=== PATIENT | female | born 1985 | race Caucasian/White ===

== ENCOUNTER 2019-09-21 13:54 | Emergency (ER) | payer OTHER ==
[2019-09-21 14:06] VITALS: BP 150/90; PULSE 99; TEMP 98.5; BMI 28.1
--- NOTE | 2019-09-21 14:06 | PDOC ---
Rapid Medical Evaluation Chief Complaint: Wound Time Seen by Provider: 09/21/19 14:03 Medical Evaluation: Allergies Allergy/AdvReac Type Severity Reaction Status Date / Time No Known Allergies Allergy Verified 09/21/19 14:03 09/21/19 14:04 I have performed a brief in-person evaluation of this patient. The patient presents with a chief complaint of:right thigh abscess x 7 days Pertinent physical exam findings: not observed I have ordered the following: UCG The patient will proceed to the ED for further evaluation. Discharge Disposition - Diagnosis Abscess - Referrals - Patient Instructions - Post Discharge Activity
--- NOTE | 2019-09-21 14:36 | PDOC ---
History of Present Illness - General Chief Complaint: Wound Stated Complaint: ABSCESS BOIL Time Seen by Provider: 09/21/19 14:03 History Source: Patient Exam Limitations: Clinical Condition - History of Present Illness Initial Comments: 09/21/19 14:37 Patient with no significant past medical history present with complaint of one- week history of abscess to right inner thigh which has not been improving with clindamycin antibiotics. Patient reported being seen in urgent care 5 days ago for abscess to right inner thigh and was prescribed clindamycin antibiotic in urgent care and advised to follow-up with general surgery which she followed up 3 days ago and was advised by general surgery to continue with prescribed antibiotics and hot compress but patient came in today because she feels symptoms not getting better. Denies fever, chills. Patient reported abscess has gotten bigger instead of smaller. Patient did not call back to general surgeon Timing/Duration: reports: week (1 week) Past History - Past Medical History Allergies/Adverse Reactions: Allergies Allergy/AdvReac Type Severity Reaction Status Date / Time No Known Allergies Allergy Verified 09/21/19 14:06 Home Medications: Ambulatory Orders Levothyroxine [Synthroid -] 50 mcg PO DAILY #30 tablet 12/05/15 Oxycodone HCl/Acetaminophen [Percocet 5/325 -] 1 tab PO Q6H #15 tablet 12/05/15 metFORMIN HCL [Glucophage -] 500 mg PO BID@0700,1630 #90 tablet 12/05/15 Cephalexin Monohydrate [Keflex -] 500 mg PO BID 7 Days #14 capsule 09/21/19 Mupirocin Ointment [Bactroban 2% Ointment -] 1 applic TP BID #1 tube 09/21/19 Sulfamethoxazole/Trimethoprim [Bactrim Ds -] 1 tab PO BID #14 tablet 09/21/19 Anemia: Yes Asthma: No Cancer: No Cardiac Disorders: No CVA: No COPD: No CHF: No Dementia: No Diabetes: Yes GI Disorders: No Disorders: No HTN: No Hypercholesterolemia: No Liver Disease: No Seizures: No Thyroid Disease: Yes (HYPO) - Psycho Social/Smoking Cessation Hx Smoking History: Never smoked Have you smoked in the past 12 months: No Number of Cigarettes Smoked Daily: 2 Information on smoking cessation initiated: No Hx Alcohol Use: No Drug/Substance Use Hx: No Substance Use Type: Marijuana Review of Systems - Review of Systems Able to Perform ROS?: Yes Is the patient limited Greek proficient: No Constitutional: No: Diaphoresis, Fever, Malaise, Weakness HEENTM: No: Symptoms Reported Respiratory: No: Symptoms reported Cardiac (ROS): No: Symptoms Reported ABD/GI: No: Symptoms Reported : No: Dysuria, Discharge, Frequency, Urgency Musculoskeletal: Yes: Symptoms Reported, See HPI, Muscle Pain (right inner thigh ) Integumentary: Yes: Symptoms Reported, See HPI, Lumps (ABSCESS TO RIGHT INNER HIGH) Neurological: No: Symptoms reported, Numbness, Tingling All Other Systems: Reviewed and Negative *Physical Exam - Vital Signs Last Vital Signs Temp Pulse Resp BP Pulse Ox 98.5 F 99 H 16 150/90 98 09/21/19 14:03 09/21/19 14:03 09/21/19 14:03 09/21/19 14:03 09/21/19 14:03 - Physical Exam Comments: 09/21/19 14:40 GENERAL: Well developed, well nourished. Awake and alert. No acute distress. PULMONARY: No evidence of respiratory distress. MUSCULOSKELETAL : mild tenderness to inner thigh around 3 cm area of hard induration to right inner thigh with mild surrounding erythema SKIN: Warm and dry. Normal capillary refill. 3 cm area of hard induration to right inner thigh with mild surrounding erythema. No open wound or drainage from site NEUROLOGICAL: Alert, awake, appropriate. No motor deficits in the lower extremities. Gait is normal without ataxia. PSYCHIATRIC: Cooperative. Good eye contact. Appropriate mood and affect. General Appearance: Yes: Nourished, Appropriately Dressed. No: Apparent Distress Medical Decision Making - Medical Decision Making 09/21/19 14:38 Patient with no significant past medical history present with complaint of one- week history of abscess to right inner thigh which has not been improving with clindamycin antibiotics. Patient reported being seen in urgent care 5 days ago for abscess to right inner thigh and was prescribed clindamycin antibiotic in urgent care and advised to follow-up with general surgery which she followed up 3 days ago and was advised by general surgery to continue with prescribed antibiotics and hot compress but patient came in today because she feels symptoms not getting better. Denies fever, chills. Patient reported abscess has gotten bigger instead of smaller. Patient did not call back to general surgeon Exam significant for 3 cm area of hard induration to inner right thigh with mild surrounding erythema. No pain wound or drainage from site. Given abscess not ready for I&D, and low sensitivity of Clinda to MRSA , will change antibiotics to Keflex and Bactrim antibiotics with topical Bactroban with advised to continue hot compress and follow-up with dermatology in 3 days for reassessment. Plan discussed with patient patient agrees with plan. Patient advised to take Motrin as needed for pain and stable for discharge Discharge - Discharge Information Problems reviewed: Yes Clinical Impression/Diagnosis: Abscess, Cellulitis and abscess of leg Condition: Stable Disposition: HOME - Admission No - Additional Discharge Information Prescriptions: Cephalexin Monohydrate [Keflex -] 500 mg PO BID 7 Days #14 capsule Mupirocin Ointment [Bactroban 2% Ointment -] 1 applic TP BID #1 tube Sulfamethoxazole/Trimethoprim [Bactrim Ds -] 1 tab PO BID #14 tablet - Follow up/Referral Referrals: Afsaneh Inman MD [Staff Physician] - - Patient Discharge Instructions Patient Printed Discharge Instructions: DI for Skin Abscess Additional Instructions: Stop previously prescribed antibiotics and take new prescribed antibiotics. Continue with hot compress to abscess area 2-3 times a day. Follow-up referred to dermatology in 2 to 3 days for reassessment - Post Discharge Activity
== END 2019-09-21 14:46 | disposition home or self-care (01) ==
LOC: JERFT 13:54
DX: L03.115 Cellulitis of right lower limb (principal); E11.9 Type 2 diabetes mellitus without complications; Z79.84 Long term (current) use of oral hypoglycemic drugs; E03.9 Hypothyroidism, unspecified
CPT/HCPCS: 84703; 99282-25

== ENCOUNTER 2021-01-16 05:47 | Emergency (ER) | payer SELFPAY ==
[2021-01-16 06:08] VITALS: TEMP 98.2; BMI 28.8
[2021-01-16] MEDS ORDERED: morphine CARPU-JECT 2 MG/1 ML DISP.SYRIN IVPUSH ONE (07:30)
[2021-01-16] MEDS ORDERED: CLINDAMYCIN IVPB 300 MG in DEXTROSE 5%-WATER - 48 ML IVPB ONE (07:33)
[2021-01-16] MEDS ORDERED: MORPHINE SULFATE 2 MG/ML VIAL ONE (08:25)
[2021-01-16] MEDS ORDERED: CLINDAMYCIN 600MG PREMIX IVPB 600 MG/50 ML BAG IVPB ONE (08:25)
[2021-01-16 09:39] LABS: BASO % 0.9 % (0-2.0); EOS % 1.4 % (0-4.5); HEMATOCRIT 41.7 % (32.4-45.2); HEMOGLOBIN 14.1 GM/dL (10.7-15.3); LYMPH % 17.5 % (8-40); MCH 29.5 pg (25.7-33.7); MCHC 33.8 g/dl (32.0-36.0); MEAN CELL VOLUME 87.1 fl (80-96); MEAN PLT VOLUME 8.8 fl (7.5-11.1); MONO % 8.1 % (3.8-10.2); NEUT % 72.1 % (42.8-82.8); PLATELET COUNT 312 K/MM3 (134-434); RBC 4.79 M/mm3 (3.60-5.2); RDW 13.7 % (11.6-15.6); WHITE BLOOD COUNT 11.4 K/mm3 (4.0-10.0)
[2021-01-16 10:08] LABS: POTASSIUM 3.5 mmol/L (3.5-5.1)
[2021-01-16 10:09] LABS: CALCIUM 8.9 mg/dL (8.5-10.1)
[2021-01-16 10:10] LABS: ALBUMIN 3.8 g/dl (3.4-5.0); BLOOD UREA NITROGEN 9.5 mg/dL (7-18)
[2021-01-16 10:13] LABS: CREATININE 0.5 mg/dL (0.55-1.3)
[2021-01-16 10:15] LABS: BILIRUBIN,TOTAL 0.7 mg/dL (0.2-1); TOT PROT 7.4 g/dl (6.4-8.2)
[2021-01-16 10:51] LABS: HCG,QUALITATIVE URINE Negative
[2021-01-16 11:09] LABS: URINE APPEARANCE CLEAR; URINE COLOR YELLOW
[2021-01-16 11:11] LABS: URINE GLUCOSE (UA) 3+ (NEGATIVE)
[2021-01-16 11:12] LABS: URINE BILIRUBIN NEGATIVE (NEGATIVE)
[2021-01-16 11:13] LABS: PH,URINE 5.5 (5.0-8.0); URINE KETONE 3+ (NEGATIVE); URINE LEUK ESTERASE NEGATIVE (NEGATIVE); URINE NITRITE NEGATIVE (NEGATIVE); URINE PROTEIN NEGATIVE (NEGATIVE); URINE UROBILINOGEN 0.2 mg/dL (0.2-1.0)
[2021-01-16 11:14] LABS: EPI CELLS 10.5 /uL (0-25.1); HYALINE CASTS 0.38 /uL (0-3.1); URINE BACTERIA 586.9 /uL (0-1359); URINE RBC 2.1 /uL (0-23.9); URINE WBC 7.1 /uL (0-25.8)
[2021-01-16] MEDS ORDERED: LIDOCAINE HCL 2% (20ML MULTI-DOSE VIAL) ONE (13:20)
[2021-01-16 15:41] VITALS: BP 138/82; PULSE 78
[2021-01-16] MEDS ORDERED: INSULIN SLIDING SCALE (NOVOLOG) 1 VIAL SQ SCH (16:30)
[2021-01-16] MEDS ORDERED: PIPERACILLIN/TAZOB 3.375 GM 3.375 GM in DEXTROSE 5%-WATER - 50 ML IVPB SCH (18:00)
[2021-01-17] MEDS ORDERED: ENOXAPARIN NA (PORCINE) 40 MG/0.4 ML DISP.SYRIN SQ SCH (10:00)
== END 2021-01-16 15:57 ==
LOC: JER 05:47 → UNDOADMIN 13:26 → JERBED 13:26 → JER 15:57
PROC: 3E03329 Introduction of Other Anti-infective into Peripheral Vein, Percutaneous Approach (ICD-10-PCS; principal; 2021-01-16)
PROC: 3E033NZ Introduction of Analgesics, Hypnotics, Sedatives into Peripheral Vein, Percutaneous Approach (ICD-10-PCS; 2021-01-16)
PROC: 3E03329 Introduction of Other Anti-infective into Peripheral Vein, Percutaneous Approach (ICD-10-PCS; 2021-01-16)
DX: N76.4 Abscess of vulva (principal)
CPT/HCPCS: 36415; 76705-TC; 80053; 81003; 83605; 84443; 84703; 85025; 87070; 87077; 87086; 87186; 87205; 99284-25

== ENCOUNTER 2021-04-05 20:07 | Emergency (ER) | payer SELFPAY ==
[2021-04-05 20:12] VITALS: BP 138/86; PULSE 100; TEMP 97.8; BMI 28.8
[2021-04-05] MEDS ORDERED: ALPRAZolam 0.25 MG TABLET PO ONE (21:10)
[2021-04-05] MEDS ORDERED: ALPRAZolam 0.25 MG TABLET ONE (21:18)
[2021-04-05] MEDS ORDERED: LIDOCAINE HCL 1%, 10 MG/ML (50 mL VIAL) SQ ONE (22:12)
[2021-04-05] MEDS ORDERED: LIDOCAINE HCL 1%, 10 MG/ML (20ML VIAL) ONE (22:13)
[2021-04-05] MEDS ORDERED: CEPHALEXIN MONOHYDRATE 500 MG CAPSULE (UD) PO ONE (22:46)
[2021-04-05] MEDS ORDERED: SULFAMETHOXAZOLE/TRIMETHOPRIM 800MG/160MG D.S. TABLET PO ONE (22:46)
[2021-04-05] MEDS ORDERED: CEPHALEXIN MONOHYDRATE 500 MG CAPSULE (UD) ONE (22:51)
[2021-04-05] MEDS ORDERED: SULFAMETHOXAZOLE/TRIMETHOPRIM 800MG/160MG D.S. TABLET ONE (22:51)
[2021-04-06 00:37] LABS: HIV INTERPRETATION NEGATIVE (NEGATIVE)
== END 2021-04-05 22:30 | disposition home or self-care (01) ==
LOC: JERFT 20:07
PROC: 0X950ZZ Drainage of Left Axilla, Open Approach (ICD-10-PCS; principal; 2021-04-05)
DX: L02.412 Cutaneous abscess of left axilla (principal)
CPT/HCPCS: 36415; 80074; 87070; 87186; 87205; 87389; 99283-25